=== PATIENT | male | born 1980 ===

== ENCOUNTER 2016-12-14 22:03 | Emergency (ER) | payer SELFPAY ==
[~2016-12-14] VITALS: Ht 182.9 cm; Wt 109.1 kg
[2016-12-15 00:11] VITALS: Ht 182.9 cm; Wt 109.1 kg
== END 2016-12-15 02:28 | disposition left against medical advice (07) ==
LOC: FTE 22:03
DX: Z53.21 Procedure and treatment not carried out due to patient leaving prior to being seen by health care provider (principal)